=== PATIENT | female | born 1945 | race Caucasian/White ===

== ENCOUNTER 2022-07-24 14:03 | Outpatient (CLI) | payer MEDICARE, BC, SELFPAY ==
--- NOTE | 2022-07-24 14:30 | CRLHL7_ITS ---
For Patients: As a result of the Century Cures Act, medical imaging exams and procedure reports are released immediately into your electronic medical record. You may view this report before your referring provider. If you have questions, please contact your health care provider. BILATERAL BREAST MRI WITHOUT AND WITH GADOLINIUM, 07/24/2022 CLINICAL HISTORY: Recent mammogram showed BILATERAL benign microcalcifications with some increased breast density in the inferior breast on the LEFT on the MLO view. Non-specific ultrasound. Palpable thickening noted correlating with the increased density on mammogram. INDICATION FOR BREAST MRI: Problem-solving breast MRI for the LEFT breast. COMPARISON STUDIES: 07/10/2022, 05/03/2022 CONTRAST: 20 mL Dotarem. TECHNIQUE: The patient was positioned prone using a breast coil. Multiple imaging sequences were obtained using 1-1.5 mm thick slices with no gap. The image sequences include T2-weighted STIR in the axial plane, T1-weighted nonfat-saturated gradient echo in the axial plane, pre- and post-contrast T1-weighted FLASH 3D with fat suppression in the axial plane, and T1-weighted FLASH high-resolution 3D with fat suppression in the sagittal plane. Image post-processing was performed on a [employer] workstation. Complex 3D rendering including maximum intensity projections (MIPS) and volumetric renderings were obtained to optimize visualization of the extent of pathology and relationship to the nipple, skin, and chest wall. This aids in determining feasibility of breast conservation surgery. Subtraction, multiplanar reconstruction, mean curve determination, and angiogenesis mapping were also performed. The study was technically adequate. FINDINGS: Breast Density: Scattered fibroglandular tissue. Breast Background Enhancement: Minimal. RIGHT Breast: Negative for suspicious mass or non mass enhancement. LEFT Breast: Correlating with the area of palpable thickening there are lobulated fatty areas with mild associated peripheral thin rim enhancement in the LEFT breast. The fatty area measures 8 x 6 x 4 . Negative for solid mass. no suspicious non mass enhancement. Lymph Nodes: No enlarged lymph nodes. IMPRESSIONS AND RECOMMENDATIONS: 8 cm x 6cm x 4 cm fatty area with minimal associated thin rim enhancement. This is in the central LEFT breast. Most likely this is a large are of area of fat necrosis. Recommend follow-up for the palpable finding. RIGHT breast is negative. No enlarged lymph nodes. BI-RADS: 2-benign Jennie Cooney M.D. Body/Breast Radiologist [email or web address] Transcribed: 1:54 p.m. JR/Dictated by: Jennie Cooney MD @ 07/26/2022 1:47:00 PM (Electronically Signed)
== END 2022-07-24 14:04 | disposition home or self-care (01) ==
LOC: MRI 14:08
PROVIDERS: PCP Internal Medicine Hematology & Oncology; Visit Provider Internal Medicine Hematology & Oncology
DX: N63.20 Unspecified lump in the left breast, unspecified quadrant (principal); R92.8 Other abnormal and inconclusive findings on diagnostic imaging of breast
CPT/HCPCS: 77049; A9575